=== PATIENT | female | born 1960 | race Caucasian/White ===

== ENCOUNTER 2017-09-06 12:48 | Outpatient (CLI) | payer OTHER ==
[2017-09-06 14:20] LABS: #Eosinphils 0.5 thou/uL (0.0-0.7); #Lymphocytes 2.3 thou/uL (1.20-3.40); #Monocytes 0.8 thou/uL (0.11-0.59); #Neutrophils 5.3 thou/uL (1.40-6.50); %Basophils 0.4 % (0.0-1.0); %Eosinophils 5.3 % (0.0-10.0); %Lymphocytes 26.2 % (21.0-51.0); %Monocytes 8.7 % (0.0-10.0); Hematocrit 42.9 % (36.0-47.0); Mean Platelet Volume 7.9 fL (7.4-10.4); White Blood Cell (WBC) Count 8.9 thou/uL (4.8-10.8)
[2017-09-06 14:26] LABS: Bilirubin Negative (Negative); Blood, Urine Negative (Negative); Glucose, Urine (Dipstick) Negative (Negative); Ketone, Urine Negative (Negative); Nitrite Negative (Negative); Protein, Urine (Dipstick) Negative (Neg-Trace); Urobilinogen 0.2 mg/dL (0.2-1.0)
[2017-09-06 14:28] LABS: Anion Gap 10 mmol/L (10-20); BUN (Urea Nitrogen) 15 mg/dL (9.8-20.1); Calc. Creatinine Clearance 0 mL/min (70-130); Calcium 9.9 mg/dL (7.8-10.44); Carbon Dioxide 30 mmol/L (22-29); Chloride 100 mmol/L (98-107); Estimated GFR-MDRD 89
[2017-09-06 14:31] LABS: Bacteria/HPF None Seen HPF (None Seen); Hyaline Casts/LPF 0-3 HYALINE CAST LPF (0-3 Hyaline); RBC/HPF 0-3 HPF (0-3); Squamous Epithelial 0-3 HPF (0-3); WBC/HPF None Seen HPF (0-3)
--- NOTE | 2017-09-06 15:07 | EKG ---
Test Reason : PREOP Blood Pressure : / mmHG Vent. Rate : 068 BPM Atrial Rate : 068 BPM P-R Int : 166 ms QRS Dur : 092 ms QT Int : 396 ms P-R-T Axes : 052 079 053 degrees QTc Int : 421 ms Poor data quality, interpretation may be adversely affected Normal sinus rhythm Normal ECG Confirmed by TROY GONZALEZ ([id number]) on 09/06/2017 3:07:22 PM Referred By: EVANGELINA Confirmed By:TROY GONZALEZ
== END 2017-09-06 12:49 | disposition home or self-care (01) ==
LOC: LABBT 12:48
PROVIDERS: ATTEND Orthopaedic Surgery
DX: Z01.818 Encounter for other preprocedural examination (principal); M75.101 Unspecified rotator cuff tear or rupture of right shoulder, not specified as traumatic
CPT/HCPCS: 80048; 81001; 85025; 93005; 93010

== ENCOUNTER 2017-09-08 07:22 | Day surgery (SDC) | payer OTHER ==
[2017-09-06 13:28] VITALS: BMI 36.8
[2017-09-08] MEDS ORDERED: Tranexamic Acid 1,000 MG/100 ML BAG ONE (07:50)
[2017-09-08] MEDS ORDERED: Midazolam HCl 2 mg/2 ml Vial ONE (08:21)
[2017-09-08] MEDS ORDERED: Fentanyl 100 MCG/2 ML VIAL ONE ×2 (08:21→10:22)
[2017-09-08] MEDS ORDERED: traMADol HCl 50 MG TAB PO PRN ×2 (10:27)
[2017-09-08] MEDS ORDERED: Ropivacaine 0.2% 550 ML 550 ML NERVE BLCK SCH (10:27)
[2017-09-08] MEDS ORDERED: Promethazine HCl 25 MG/ML VIAL IM PRN (10:27)
[2017-09-08] MEDS ORDERED: Ketorolac Tromethamine 30 MG/ML VIAL IVP PRN (10:27)
[2017-09-08] MEDS ORDERED: Ondansetron HCl/PF 4 MG/2 ML Vial IVP PRN (10:27)
[2017-09-08] MEDS ORDERED: Fentanyl 100 MCG/2 ML VIAL IV PRN (10:27)
[2017-09-08] MEDS ORDERED: HYDROcodone/Acetaminophen 5/325 mg Tablet PO PRN ×2 (10:27)
[2017-09-08] MEDS ORDERED: Zolpidem Tartrate 5 MG TAB PO PRN (10:27)
[2017-09-08] MEDS ORDERED: ePHEDrine/0.9% NaCl/PF SYRINGE 50 mg/10 ml ONE (10:36)
[2017-09-08] MEDS ORDERED: Glycopyrrolate 0.2 MG/ML 5 ML SYRINGE ONE (10:36)
[2017-09-08] MEDS ORDERED: Ondansetron HCl/PF 4 MG/2 ML Vial ONE (10:36)
[2017-09-08] MEDS ORDERED: Propofol 200 MG/20 ML VIAL ONE (10:36)
[2017-09-08] MEDS ORDERED: Lidocaine 2% PF 10 ML AMP (For Epidural Use) ONE (10:36)
[2017-09-08] MEDS ORDERED: Bupivacaine PF 0.5% 30 ML VIAL ONE (10:49)
--- NOTE | 2017-09-08 13:15 | OP ---
DATE OF PROCEDURE: 09/08/2017 PREOPERATIVE DIAGNOSIS: Right partial thickness rotator cuff tear, incomplete tear. POSTOPERATIVE DIAGNOSES: 1. Right shoulder bursitis. 2. Degenerative anterior labral tear. 3. Partial rotator cuff tear. STAFF: Diego Fuller M.D. ANESTHESIA: Lauren. The patient received general endotracheal and interscalene block. PROCEDURE PERFORMED: An extensive debridement. ESTIMATED BLOOD LOSS: 30 mL. TOURNIQUET TIME: None. IMPLANTS: None. ANTIBIOTICS: Ancef 2 grams, injection of Marcaine subcu 20 mL. COMPLICATIONS: None. HISTORY OF PRESENT ILLNESS: Mrs. Valencia is a pleasant 57-year-old female who presented to me with pain that was 5/10. The patient had pain, limited relief from her injection, had pain for greater than 4 months. The patient continued to have pain and had tried conservative interventions, desired evaluation of her partial thickness rotator cuff tear. I discussed risks and benefits of surgery t o include pain, scar, bleeding, infection, damage to vital structures, nerves, arteries, tendons ves sels, stiffness, decreased range of motion or strength, loss of life or limb. She understood the ri sks and benefits of procedure and elected to proceed. PROCEDURE IN DETAIL: Time out was performed designating the patient's right upper extremity as the operative site. Based on sight, consents marked completion of timeout, the patient's right shoulder posterior working portal placed, anterior working portal placed to the rotator interval. I visuali zed intra-articular in the scope, I saw no defects of the humerus or glenoid. She had some degenera tive fraying of the labrum that was still attached, but there were some degenerative tearing which w as just gently debrided. The superior labrum was intact. The biceps looked good through its course . The rotator cuff had no fraying or damage through its course. Given this, I completed my minimal debridement of the SLAP tear and moved back to the subacromial space. There was a fulminant bursa which was debrided off the cuff to expose the rotator cuff. I looked at the infraspinatus posterior ly and the supraspinatus, I could not find a full thickness tear throughout through probing. I debr ided all the bursa off to expose the cuff and could not find a tear that I thought need a repair. T herefore, I elected to complete my procedure. I washed, I closed with nylon and placed her in a reg ular sling. The patient will follow up with me in 2 weeks, begin passive range of motion activities. I will see her back then.
== END 2017-09-08 14:00 | disposition home or self-care (01) ==
LOC: SDC 07:22
PROVIDERS: ATTEND Orthopaedic Surgery
PROC: 0RBJ4ZZ Excision of Right Shoulder Joint, Percutaneous Endoscopic Approach (ICD-10-PCS; principal; 2017-09-08)
DX: M75.51 Bursitis of right shoulder (principal); S43.401A Unspecified sprain of right shoulder joint, initial encounter; M75.111 Incomplete rotator cuff tear or rupture of right shoulder, not specified as traumatic; E03.9 Hypothyroidism, unspecified; I10 Essential (primary) hypertension; J45.909 Unspecified asthma, uncomplicated; M19.90 Unspecified osteoarthritis, unspecified site; Z79.899 Other long term (current) drug therapy; Z90.710 Acquired absence of both cervix and uterus; Z90.722 Acquired absence of ovaries, bilateral; Z90.49 Acquired absence of other specified parts of digestive tract; Z98.890 Other specified postprocedural states
CPT/HCPCS: A4306; G8984-GP-CN; G8985-GP-CN; G8986-GP-CN; J2001; J2250; J2405; J2704; J2795; J3010; S0020

== ENCOUNTER 2024-06-05 20:36 | Observation (INO) | payer MEDICARE ==
[2024-06-05 21:35] LABS: #Basophils 0.07 10x3/uL (0.0-0.2); %Basophils 0.6 % (0.0-1.0); %Eosinophils 18.2 % (0.0-10.0); %Lymphocytes 24.3 % (21.0-51.0); %Monocytes 9.6 % (0.0-10.0); %Neutrophils 47.1 % (42.0-75.0); Hemoglobin 14.3 g/dL (12.0-16.0); Mean Corpuscular HGB CONC 32.5 g/dL (32.0-36.0); Mean Corpuscular Hemoglobin 27.9 pg (27.0-31.0); Mean Corpuscular Volume 85.9 fL (78.0-98.0); Mean Platelet Volume 9.7 fL (7.4-10.4); Platelet Count 358 10x3/uL (130-400); RBC Distribution Width 13.9 % (11.5-14.5); Red Blood Cell (RBC) Count 5.12 mill/uL (4.20-5.40)
[2024-06-05 21:53] LABS: ALT (SGPT) 26 U/L (8-55); AST (SGOT) 18 U/L (5-34); Albumin 4.1 g/dL (3.4-4.8); Alkaline Phosphatase 69 U/L (40-110); Anion Gap 15 mmol/L (10-20); BUN (Urea Nitrogen) 24 mg/dL (9.8-20.1); Bilirubin, Total 0.6 mg/dL (0.2-1.2); Calc. Creatinine Clearance 0 mL/min (70-130); Calcium 10.7 mg/dL (7.8-10.44); Carbon Dioxide 30 mmol/L (23-31); Chloride 94 mmol/L (98-107); Estimated GFR 73; Globulin 4.5 g/dL (2.4-3.5); Glucose 121 mg/dL (80-115); Lipase 43 U/L (8-78); Potassium 3.3 mmol/L (3.5-5.1); Protein, Total 8.6 g/dL (5.8-8.1); Sodium 136 mmol/L (136-145)
[2024-06-05 22:03] LABS: Troponin I Less than 0.010 ng/mL (< 0.028)
[2024-06-06 03:38] LABS: Troponin I Less than 0.010 ng/mL (< 0.028)
[2024-06-06 04:51] LABS: Bacteria/HPF 4+ HPF (None Seen); Bilirubin Negative (Negative); Blood, Urine Negative (Negative); CAUTI Indications for Culture Fever or rigors; Clarity Turbid (Clear); Glucose, Urine (Dipstick) Greater than 1000 mg/dL (Negative); Ketone, Urine Trace mg/dL (Negative); Leukocyte Negative Leu/uL (Negative); Nitrite Negative (Negative); Protein, Urine (Dipstick) Negative (Neg-Trace); RBC/HPF 0-3 HPF (0-3); Specific Gravity, Urine 1.026 (1.002-1.036); Squamous Epithelial 0-3 HPF (0-3); Urobilinogen Normal mg/dL (Less than 2)
[2024-06-06 04:54] LABS: Urine Culture Reflex Yes Yes
[2024-06-06 05:37] LABS: Troponin I Less than 0.010 ng/mL (< 0.028)
[2024-06-06] MEDS ORDERED: Acetaminophen 325 MG TAB PO PRN (09:00)
[2024-06-06] MEDS ORDERED: Ondansetron PF 4 MG/2 ML Vial SLOW IVP PRN (09:00)
[2024-06-06] MEDS ORDERED: Ondansetron ODT 4 MG TAB PO PRN (09:00)
[2024-06-06] MEDS ORDERED: Nitroglycerin 0.4 MG TAB (25 Tab Bottle) SL PRN (09:01)
[2024-06-06 13:30] VITALS: BMI 28.3
[2024-06-06] MEDS ORDERED: Glucagon 1 MG/ML KIT IM PRN (20:58)
[2024-06-06] MEDS ORDERED: Dextrose 5% in Water 1,000 ML IV PRN (20:58)
[2024-06-06] MEDS ORDERED: Dextrose 50% Abboject 50 ML SYRINGE SLOW IVP PRN (20:58)
[2024-06-07] MEDS ORDERED: Regadenoson 0.4 MG/5 ML SYRINGE ONE (09:20)
[2024-06-07 13:11] VITALS: TEMP 97.9
[2024-06-07 16:59] VITALS: BP 140/79
== END 2024-06-07 18:30 | disposition home or self-care (01) ==
LOC: ERS 20:36 → ERHOLD 06-06 00:32 → 2SW 06-06 15:07
PROVIDERS: ADMIT Student in an Organized Health Care Education/Training Program; ATTEND Family Medicine
DX: R07.2 Precordial pain (principal); E11.9 Type 2 diabetes mellitus without complications; E78.5 Hyperlipidemia, unspecified; E03.9 Hypothyroidism, unspecified; I11.0 Hypertensive heart disease with heart failure; I50.30 Unspecified diastolic (congestive) heart failure; Z96.652 Presence of left artificial knee joint; Z90.49 Acquired absence of other specified parts of digestive tract; Z98.890 Other specified postprocedural states; Z79.899 Other long term (current) drug therapy; Z79.890 Hormone replacement therapy
CPT/HCPCS: 71045; 78452; 80053; 81001; 82962 ×2; 83690; 83880; 84484 ×3; 85025; 87077; 87086; 87186; 93005; 93017; A9502; 36415; 36416; G0378; J2785

== ENCOUNTER 2024-11-20 14:26 | Outpatient (CLI) | payer MEDICARE | END 2024-11-20 14:27 | disposition home or self-care (01) | LOC: CT 14:26 | DX: I65.23 Occlusion and stenosis of bilateral carotid arteries (principal) | CPT/HCPCS: 70498 ==

== ENCOUNTER 2025-05-10 09:47 | Outpatient (CLI) | payer MEDICARE | END 2025-05-10 09:48 | disposition home or self-care (01) | LOC: RAD 09:47 | PROVIDERS: ATTEND Internal Medicine | DX: R06.00 Dyspnea, unspecified (principal) | CPT/HCPCS: 71046 ==